=== PATIENT | female | born 1990 | race American Indian/Alaskan Native ===

== ENCOUNTER 2018-01-23 21:39 | Emergency (ER) | payer OTHER ==
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
[2018-01-24] MEDS ORDERED: ULTRAM PO ONE (03:49)
[2018-01-24 04:58] VITALS: BP 122/75
== END 2018-01-24 04:58 | disposition home or self-care (01) ==
LOC: ED 21:39
DX: S39.012A Strain of muscle, fascia and tendon of lower back, initial encounter (principal); Z79.899 Other long term (current) drug therapy; V49.00XA Driver injured in collision with unspecified motor vehicles in nontraffic accident, initial encounter; Y93.89 Activity, other specified; Y99.8 Other external cause status; Y92.488 Other paved roadways as the place of occurrence of the external cause
CPT/HCPCS: 99282